=== PATIENT | female | born 1970 | race African-American/Black ===

== ENCOUNTER 2020-03-04 08:27 | Outpatient (CLI) | payer OTHER, SELFPAY ==
--- NOTE | 2020-03-04 11:00 | NEURO_ITS ---
Patient Number: [id number] Impression: # Complains of pain and discomfort in hands. # Evolving Carpal Tunnel Syndrome on the right. # No ulnar neuropathy. # Normal needle/EMG exam. Nerve Conduction Studies Anti Sensory Summary Table Stim Site NR Peak (ms) P-T Amp (?V) Site1 Site2 Delta-P (ms) Dist (cm) Negro (m/s) Left Median Anti Sensory (2-3nd Digit) Wrist 3.0 76.5 Wrist 2-3nd Digit 3.0 14.0 47 Wrist 3.1 78.1 Wrist 2-3nd Digit 3.0 14.0 47 Right Median Anti Sensory (2-3nd Digit) Wrist 3.0 78.2 Wrist 2-3nd Digit 3.0 14.0 47 Wrist 4.6 22.3 Wrist 2-3nd Digit 3.0 14.0 47 Left Radial Anti Sensory (Base 1st Digit) Wrist 2.6 21.9 Wrist Base 1st Digit 2.6 0.0 Right Radial Anti Sensory (Base 1st Digit) Wrist 2.4 19.6 Wrist Base 1st Digit 2.4 0.0 Left Ulnar Anti Sensory (5th Digit) Wrist 2.4 58.5 Wrist 5th Digit 2.4 14.0 58 Right Ulnar Anti Sensory (5th Digit) Wrist 2.3 8.5 Wrist 5th Digit 2.3 14.0 61 Motor Summary Table Stim Site NR Onset (ms) O-P Amp (mV) Site1 Site2 Delta-0 (ms) Dist (cm) Negro (m/s) Left Median Motor (Abd Poll Brev) Wrist 3.3 6.2 Elbow Wrist 5.2 32.0 62 Elbow 8.5 3.4 Right Median Motor (Abd Poll Brev) Wrist 3.5 5.2 Elbow Wrist 5.3 31.0 58 Elbow 8.8 2.7 Left Ulnar Motor (Abd Dig Minimi) Wrist 2.8 4.5 A Elbow Wrist 5.2 31.0 60 A Elbow 8.0 2.3 Right Ulnar Motor (Abd Dig Minimi) Wrist 2.5 3.7 A Elbow Wrist 5.4 30.0 56 A Elbow 7.9 2.4 F Wave Studies NR F-Lat (ms) L-R F-Lat (ms) Left Median (Mrkrs) (Abd Poll Brev) 27.33 0.77 Right Median (Mrkrs) (Abd Poll Brev) 26.56 0.77 Left Ulnar (Mrkrs) (Abd Dig Min) 26.82 0.08 Right Ulnar (Mrkrs) (Abd Dig Min) 26.90 0.08 EMG Side Muscle Nerve Root Ins Act Fibs Amp Dur Recrt Comment Right 1stDorInt Ulnar C8-T1 Nml Nml Nml Nml Nml Right Ext Indicis Radial (Post Int) C7-8 Nml Nml Nml Nml Nml Right Ext Digitorum Radial (Post Int) C7-8 Nml Nml Nml Nml Nml Right BrachioRad Radial C5-6 Nml Nml Nml Nml Nml Right PronatorTeres Median C6-7 Nml Nml Nml Nml Nml Right Abd Poll Brev Median C8-T1 Nml Nml Nml Nml Nml Left 1stDorInt Ulnar C8-T1 Nml Nml Nml Nml Nml Left Ext Indicis Radial (Post Int) C7-8 Nml Nml Nml Nml Nml Left Ext Digitorum Radial (Post Int) C7-8 Nml Nml Nml Nml Nml Left BrachioRad Radial C5-6 Nml Nml Nml Nml Nml Left PronatorTeres Median C6-7 Nml Nml Nml Nml Nml Left Abd Poll Brev Median C8-T1 Nml Nml Nml Nml Nml MTDD
== END 2020-03-04 08:28 | disposition home or self-care (01) ==
PROVIDERS: PCP Family Medicine; Visit Provider Orthopaedic Surgery
DX: G56.03 Carpal tunnel syndrome, bilateral upper limbs (principal)
CPT/HCPCS: 95886; 95911

== ENCOUNTER → 2020-06-16 17:39 | Outpatient (CLI) | payer OTHER, SELFPAY ==
--- NOTE | ~2020-06-16 | MM_ITS ---
EXAMINATION: MM screening ajay BI w dada HISTORY: Screening mammogram TECHNIQUE: Craniocaudal and mediolateral oblique 3-D tomosynthesis images were obtained and synthetic 2-D images were generated. .... Bilateral rotated lateral cc views. CAD analysis was submitted and i nterpreted. COMPARISON: 05/19/2019 diagnostic right digital mammogram 04/23/2019, 11/01/2016 bilateral digital screening mammogram examinations BREAST PARENCHYMAL COMPOSITION: There are scattered areas of fibroglandular density. FINDINGS: Occasional bilateral benign calcifications. There is focal asymmetric density in the posterior mid to upper right breast on MLO view. Diagnostic right mammogram is recommended, with ultrasound if required. Otherwise there is no evidence of suspicious mass, calcification, or architectural distortion to sugg est malignancy in either breast. There has been no suspicious interval change. IMPRESSION: 1. Right mammographic asymmetry in posterior mid to upper right breast on MLO view 2. Diagnostic right mammogram is recommended, with ultrasound if required BI-RADS Category 0: Incomplete: Needs additional imaging evaluation. Reviewed, dictated and finalized at location A. ET ANALYSIS DIRECTOR IMPRESSION: 1. Right mammographic asymmetry in posterior mid to upper right breast on MLO v iew 2. Diagnostic right mammogram is recommended, with ultrasound if required BI-RADS Category 0: Incomplete: Needs additional imaging evaluation.
== END ==
PROVIDERS: PCP Family Medicine; Visit Provider Nurse Practitioner
DX: Z12.31 Encounter for screening mammogram for malignant neoplasm of breast (principal); R92.8 Other abnormal and inconclusive findings on diagnostic imaging of breast
CPT/HCPCS: 77063; 77067

== ENCOUNTER 2020-06-17 16:10 | Outpatient (CLI) | payer OTHER, SELFPAY ==
[2020-06-17 16:27] LABS: Basophils Percent Auto 0.4 % (0.2-1.2); Eosinophils Absolute Auto 0.1 K/mm3 (0-0.3); Eosinophils Percent Auto 0.6 % (0-4.4); Hemoglobin 13.2 g/dL (12.0-15.0); Immature Granulocyte Absolute 0.01 K/mm3 (0.00-0.031); Immature Granulocyte Percent A 0.1 % (0-0.5); Lymphocytes Absolute Auto 2.12 K/mm3 (0.9-3.2); Lymphocytes Percent Auto 26.8 % (18.3-44.2); Mean Corpuscular HGB Conc 33.8 g/dl (32-36); Mean Corpuscular Hemoglobin 31.7 pg (26-34); Mean Corpuscular Volume 93.5 fl (80-100); Mean Platelet Volume 10.9 fl (7.4-10.4); Monocytes Absolute Auto 0.7 K/mm3 (0.1-0.6); Monocytes Percent Auto 8.2 % (2.6-8.5); Neutrophils Percent Auto 63.9 % (45.5-73.1); Platelet Count Result 185 k/mm3 (150-375); Red Blood Count 4.17 M/mm3 (4.2-5.4); Red Cell Distribution Width 12.3 % (11.5-14.5); White Blood Count 7.9 K/mm3 (4.5-10.0)
[2020-06-17 16:39] LABS: Alanine Aminotransferase 24 U/L (4-35); Albumin Level 4.1 g/dL (3.5-5.1); Alkaline Phosphatase 45 U/L (38-126); Anion Gap 5 mmol/L (8-16); Aspartate Amino Transferase 33 U/L (14-36); Bilirubin,Total 1.2 mg/dL (0.2-1.3); Blood Urea Nitrogen 11 mg/dL (7-17); Calcium 9.2 mg/dL (8.4-10.2); Carbon Dioxide 31 mmol/L (22-30); Chloride 101 mmol/L (98-107); Cholesterol 170 mg/dL (0-200); Estimated Glomerular Filt Rate > 60; Glucose 90 mg/dL (65-105); HDL Direct 50 mg/dL; Potassium 3.7 mmol/L (3.4-5.0); Sodium 137 mmol/L (137-145); Triglycerides 119 mg/dL (<150)
[2020-06-17 16:50] LABS: LDL Cholesterol Direct 94 mg/dL
[2020-06-18 05:05] LABS: Free T4 Free Thyroxine Reflex 0.55 ng/dL (0.78-2.19)
== END 2020-06-17 16:11 | disposition home or self-care (01) ==
LOC: ANHLAB 16:12
PROVIDERS: PCP Family Medicine; Visit Provider Family Medicine
DX: E66.01 Morbid (severe) obesity due to excess calories (principal); I10 Essential (primary) hypertension; E11.9 Type 2 diabetes mellitus without complications; Z13.220 Encounter for screening for lipoid disorders
CPT/HCPCS: 36415; 80053; 80061; 83036; 84439; 84443; 85025

== ENCOUNTER 2020-06-26 00:49 | Outpatient (CLI) | payer OTHER, SELFPAY ==
[2020-06-26 18:47] LABS: SARS-CoV-2 RNA PCR Negative
== END 2020-06-26 00:50 | disposition home or self-care (01) ==
LOC: ANHCOVIDDT 00:49
PROVIDERS: PCP Family Medicine; Visit Provider Internal Medicine Gastroenterology
DX: Z01.812 Encounter for preprocedural laboratory examination (principal); Z20.822 Contact with and (suspected) exposure to COVID-19
CPT/HCPCS: C9803; U0003; U0005

== ENCOUNTER 2020-06-29 01:37 | Day surgery (SDC) | payer OTHER, SELFPAY ==
[2020-06-11 08:45] VITALS: BMI 42.0
[2020-06-29 07:21] VITALS: BP 162/90; PULSE 79; RESP 18; TEMP 36.7; O2SAT 97
[2020-06-29] MEDS: LACTATED RINGERS 1,000 ML 150 ML IV CONT (07:51)
--- NOTE | 2020-06-29 08:22 | PM.HPGS ---
History of Present Illness History of Present Illness Consent: Risks, benefits, and alternatives have been discussed and questions answered. Patient agrees to proceed with procedure. Chief complaint: Neoplasm Screening Narrative: Elise Huitron is a 49 year old female here for first screening colonoscopy Review of Systems Constitutional: Constitutional: Denies headache(s) and Denies weakness Eyes: Eyes: Denies blurry vision ENT: Reports Normal hearing present, Denies headache(s) and Denies neck pain Cardiovascular: Cardiovascular: Denies chest pain and Denies dyspnea Respiratory: Respiratory: Denies dyspnea Gastrointestinal: Gastrointestinal: Reports no additional gastrointestinal complaints Genitourinary: Genitourinary: Denies dysuria Musculoskeletal: Musculoskeletal: Denies neck pain Integumentary/Breasts: Skin/Breast: Denies dry skin Neurologic: Reports Normal hearing present, Denies headache(s) and Denies weakness Psychiatric: Psychiatric: Denies anxiety Endocrine: Endocrine: Denies change in body appearance Hematologic/Lymphatic: Hematologic/Lymphatic: Denies easy bleeding Allergic/Immunologic: Allergic/Immunologic: Denies urticaria PMFSH Past Medical History Medical History Essential (primary) hypertension (~2013) Essential (primary) hypertension Severe obesity (BMI >= 40) (~2013) Surgical History Surgical History S/P cholecystectomy (~11/2018) S/P removal of right ovary (~03/2016) Family History Family History Mother Hypertension Sibling Hypertension Diabetes mellitus sister x2 Grandparent , @ 87 y/o Lung cancer Grandparent , @ 97 y/o Alzheimer's dementia Social History Social History 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 Smoking status: Never smoker Second hand tobacco smoke exposure: No Alcohol intake: current Drinks per week: 1 Substance use: never Substance use type: does not use Living arrangements: with family Additional occupation/education comments: 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 Gender identity (if verbalized by the patient): Female Spiritual care concerns: No Agree to blood products: Yes Meds Home Medications and Allergies Home Medications Medication Instructions Recorded Confirmed Type losartan 50 mg-hydrochlorothiazide 1 tablet PO DAILY #90 tablet 05/31/20 06/11/20 Rx 12.5 mg tablet ascorbic acid (vitamin C) 1 g PO DAILY 06/11/20 06/11/20 History folic acid 0.4 mg PO DAILY 06/11/20 06/11/20 History loly (Zingiber officinalis) 550 mg PO DAILY 06/11/20 06/11/20 History Allergies Allergy/AdvReac Type Severity Reaction Status Date / Time codeine Allergy Intermediate Rash Verified 06/29/20 07:52 diphenhydramine Allergy Intermediate RASH Verified 06/29/20 07:52 hydrocodone Allergy Mild ITCHING Verified 06/29/20 07:52 Vital Signs Vital Signs - 24 hr 06/29/20 07:21 Temperature 98.1 F Pulse Rate 79 Respiratory Rate 18 Blood Pressure 162/90 H Pulse Oximetry 97 Exam Const: General: comfortable and no acute distress HENMT: General nose exam: Normal nares present Eyes: General: appearance normal, both eyes and all related structures Neck: Neck: no JVD Resp: Auscultation: clear to auscultation bilaterally Cardio: Rate: regular rate Rhythm: regular rhythm GI: Inspection: non-distended GI Palp: Yes Soft to palpation Skin: General skin exam: normal color Neuro: General: gait normal Speech: normal speech Extrem: General: normal to inspection Psych: Mental Status: mental status grossly normal Assessment and Plan Assessment and plan (1) Colon cancer screening: Code(s): Z12.1
--- NOTE | 2020-06-29 08:25 | WPDANESEPPF ---
Anes - Initial Pre Proc Eval Procedure: Operation Date: 06/29/20 08:30 Proposed Procedures p Screening Colonoscopy - Dylon Lynne MD Date/Time: 06/29/20 08:25 Surgeon: Dylon Lynne MD Pre Op Diagnosis: Neoplasm Screening Patient Data Age: 49 Gender: F Height: 5 ft 6 in Weight: 115.1 kg Last Vital Signs Temp 98.1 F 06/29/20 07:21 Pulse 79 06/29/20 07:21 Resp 18 06/29/20 07:21 BP 162/90 H 06/29/20 07:21 Pulse Ox 97 06/29/20 07:21 Allergies Allergy/AdvReac Type Severity Reaction Status Date / Time codeine Allergy Intermediate Rash Verified 06/29/20 07:52 diphenhydramine Allergy Intermediate RASH Verified 06/29/20 07:52 hydrocodone Allergy Mild ITCHING Verified 06/29/20 07:52 Home Medications Medication Instructions Recorded Confirmed Type losartan 50 mg-hydrochlorothiazide 1 tablet PO DAILY #90 tablet 05/31/20 06/11/20 Rx 12.5 mg tablet ascorbic acid (vitamin C) 1 g PO DAILY 06/11/20 06/11/20 History folic acid 0.4 mg PO DAILY 06/11/20 06/11/20 History loly (Zingiber officinalis) 550 mg PO DAILY 06/11/20 06/11/20 History Patient hx anesthesia problems: none Family hx anesthesia problems: none PMFSH Past Medical History Medical History (Updated 06/29/20 @ 08:23 by Dylon Lynne MD) Colon cancer screening Essential (primary) hypertension (~2013) Essential (primary) hypertension Severe obesity (BMI >= 40) (~2013) Surgical History Surgical History S/P cholecystectomy (~11/2018) S/P removal of right ovary (~03/2016) Family History Family History Mother Hypertension Sibling Hypertension Diabetes mellitus sister x2 Grandparent , @ 87 y/o Lung cancer Grandparent , @ 97 y/o Alzheimer's dementia Social History Social History 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 Smoking status: Never smoker Second hand tobacco smoke exposure: No Alcohol intake: current Drinks per week: 1 Substance use: never Substance use type: does not use Living arrangements: with family 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 Gender identity (if verbalized by the patient): Female Spiritual care concerns: No Agree to blood products: Yes Anes - Eval Final PreProcedure Day of Procedure 06/29/20 08:25 Patient weight: morbidly obese Heart: regular rate and rhythm Lungs: clear to auscultation Airway: Mallampati scale class II Neurological: alert and oriented Last oral intake: >/= 8 hours ASA classification: III Emergent: no Anesthetic plan: proceed Anesthesia type and monitoring: general GIVS and standard monitoring Informed Consent: The patient's anesthetic plan and its attendant risks and benefits were discussed with the patient/family/POA. Questions were solicited and answers provided to the satisfaction of the patient/family/POA.
[2020-06-29 08:44] VITALS: BP 124/76; PULSE 84; RESP 17; O2SAT 95
[2020-06-29 08:54] VITALS: BP 131/83; PULSE 75; RESP 14; O2SAT 94
[2020-06-29 09:04] VITALS: BP 137/85; PULSE 69; RESP 19; O2SAT 95
== END 2020-06-29 09:25 | disposition home or self-care (01) ==
PROVIDERS: PCP Family Medicine; Visit Provider Internal Medicine Gastroenterology
PROC: 0DJD8ZZ Inspection of Lower Intestinal Tract, Via Natural or Artificial Opening Endoscopic (ICD-10-PCS; CPT 45378; principal; 2020-06-29 08:30)
DX: Z12.11 Encounter for screening for malignant neoplasm of colon (principal); K63.5 Polyp of colon; K64.8 Other hemorrhoids; I10 Essential (primary) hypertension; E66.01 Morbid (severe) obesity due to excess calories; Z68.41 Body mass index [BMI] 40.0-44.9, adult
CPT/HCPCS: 45385; 88305; C9803; J2704; J7120; U0003; U0005

== ENCOUNTER → 2020-07-12 08:32 | Outpatient (CLI) | payer OTHER, SELFPAY ==
--- NOTE | ~2020-07-12 | MMUS_ITS ---
EXAMINATION: MM diagnostic mammo unilat RT, US breast RT limited HISTORY: Follow-up right breast asymmetry TECHNIQUE: Additional 3-D tomosynthesis images of the right breast were performed and synthetic 2-D i mages were generated. CAD analysis was submitted and interpreted. High resolution right breast ultras ound was performed. COMPARISON: Comparison to multiple prior studies sequentially, with oldest reviewed study dated 01/2014. BREAST PARENCHYMAL COMPOSITION: Breast composed of scattered areas of fibroglandular density. FINDINGS: MAMMOGRAPHIC FINDINGS: There are benign-appearing masses overlying the pectoralis muscle on the MLO and mediolateral views, most likely benign lymph nodes. No suspicious masses, calcifications or architectural distortion to s uggest malignancy. ULTRASOUND: Limited ultrasound of the right breast/axilla: In the axilla there is an 8 mm benign-appearing lymph node with central fatty hilum. No suspicious masses are identified to suggest malignancy. IMPRESSION: 1. No evidence for malignancy in the right breast. 2. Routine yearly screening mammogram and regular clinical breast examination are recommended. BI-RADS Category 2: Benign finding(s). Reviewed, dictated and finalized at location A. OGY SURGEON IMPRESSION: 1. No evidence for malignancy in the right breast. 2. Routine yearly screening mammogram and regular clinical breast examination a re recommended. BI-RADS Category 2: Benign finding(s).
== END ==
PROVIDERS: PCP Family Medicine; Visit Provider Obstetrics & Gynecology Gynecology
DX: R92.8 Other abnormal and inconclusive findings on diagnostic imaging of breast (principal)
CPT/HCPCS: 76642; 77065

== ENCOUNTER 2021-08-15 11:55 | Outpatient (CLI) | payer OTHER, SELFPAY ==
[2021-08-15 12:19] LABS: Basophils Percent Auto 0.5 % (0.2-1.2); Eosinophils Absolute Auto 0.1 K/mm3 (0-0.3); Eosinophils Percent Auto 1.3 % (0-4.4); Hematocrit 42.3 % (37.0-47.0); Hemoglobin 14.2 g/dL (12.0-15.0); Immature Granulocyte Absolute 0.01 K/mm3 (0.00-0.031); Immature Granulocyte Percent A 0.1 % (0-0.5); Lymphocytes Absolute Auto 1.51 K/mm3 (0.9-3.2); Lymphocytes Percent Auto 20.4 % (18.3-44.2); Mean Corpuscular HGB Conc 33.6 g/dl (32-36); Mean Corpuscular Hemoglobin 31.7 pg (26-34); Mean Corpuscular Volume 94.4 fl (80-100); Mean Platelet Volume 10.3 fl (7.4-10.4); Monocytes Absolute Auto 0.5 K/mm3 (0.1-0.6); Monocytes Percent Auto 6.9 % (2.6-8.5); Neutrophils Absolute Auto 5.3 K/mm3 (1.3-6.7); Neutrophils Percent Auto 70.8 % (45.5-73.1); Platelet Count Result 198 k/mm3 (150-375); Red Blood Count 4.48 M/mm3 (4.2-5.4); Red Cell Distribution Width 12.5 % (11.5-14.5); White Blood Count 7.4 K/mm3 (4.5-10.0)
[2021-08-15 12:33] LABS: Potassium 4.2 mmol/L (3.4-5.0)
[2021-08-15 12:43] LABS: Alanine Aminotransferase 24 U/L (4-35); Albumin Level 4.7 g/dL (3.5-5.1); Alkaline Phosphatase 55 U/L (38-126); Anion Gap 8 mmol/L (8-16); Aspartate Amino Transferase 32 U/L (14-36); Bilirubin,Total 0.9 mg/dL (0.2-1.3); Blood Urea Nitrogen 12 mg/dL (7-17); Calcium 9.2 mg/dL (8.4-10.2); Carbon Dioxide 23 mmol/L (22-30); Chloride 104 mmol/L (98-107); Cholesterol 232 mg/dL (0-200); Estimated Glomerular Filt Rate > 60; Glucose 114 mg/dL (65-110); HDL Direct 58 mg/dL; Sodium 135 mmol/L (137-145); Triglycerides 172 mg/dL (<150)
[2021-08-15 12:44] LABS: LDL Cholesterol Direct 131 mg/dL
[2021-08-15 12:49] LABS: Hemoglobin A1C 5.7 % (<5.7)
[2021-08-15 12:51] LABS: Vitamin D 25 Hydroxy 29.6 ng/mL
== END 2021-08-15 11:56 | disposition home or self-care (01) ==
LOC: ANHLAB 11:58
PROVIDERS: PCP Family Medicine; Visit Provider Family Medicine
DX: Z00.00 Encounter for general adult medical examination without abnormal findings (principal); Z13.220 Encounter for screening for lipoid disorders; I10 Essential (primary) hypertension; R73.03 Prediabetes; E55.9 Vitamin D deficiency, unspecified
CPT/HCPCS: 36415; 80053; 80061; 82306; 83036; 84443; 85025

== ENCOUNTER → 2021-09-06 16:09 | Outpatient (CLI) | payer OTHER, SELFPAY ==
--- NOTE | ~2021-09-06 | MM_ITS ---
EXAMINATION: MM screening ajay BI w dada HISTORY: Screening mammogram TECHNIQUE: Craniocaudal and mediolateral oblique 3-D tomosynthesis images were obtained and synthetic 2-D images were generated. CAD analysis was submitted and interpreted. COMPARISON: July 12, 2020 diagnostic right mammogram and limited right breast ultrasound 06/16/2020 bilateral screening mammogram 05/19/2019 diagnostic right mammogram 04/23/2019 bilateral screening mammogram BREAST PARENCHYMAL COMPOSITION: There are scattered areas of fibroglandular density. FINDINGS: There is no evidence of suspicious mass, calcification, or architectural distortion to sugg est malignancy in either breast. There has been no suspicious interval change. IMPRESSION: 1. No mammographic evidence of malignancy. 2. Recommend routine screening mammography in one year. BI-RADS Category 1: Negative Reviewed, dictated and finalized at location A.
== END ==
PROVIDERS: PCP Family Medicine; Visit Provider Nurse Practitioner
DX: Z12.31 Encounter for screening mammogram for malignant neoplasm of breast (principal)
CPT/HCPCS: 77063; 77067

== ENCOUNTER 2022-06-13 11:59 | Outpatient (CLI) | payer OTHER, SELFPAY ==
[2022-06-13 20:28] LABS: Alanine Aminotransferase 25 U/L (6-35); Albumin Level 4.5 g/dL (3.5-5.1); Alkaline Phosphatase 62 U/L (38-126); Anion Gap 6 mmol/L (8-16); Aspartate Amino Transferase 40 U/L (14-36); Bilirubin,Total 1.6 mg/dL (0.2-1.3); Blood Urea Nitrogen 13 mg/dL (7-17); Calcium 9.1 mg/dL (8.4-10.2); Carbon Dioxide 31 mmol/L (22-30); Chloride 100 mmol/L (98-107); Cholesterol 219 mg/dL (0-200); Estimated Glomerular Filt Rate > 60; Glucose 105 mg/dL (65-110); HDL Direct 51 mg/dL; Potassium 3.9 mmol/L (3.4-5.0); Sodium 137 mmol/L (137-145); Triglycerides 144 mg/dL (<150)
[2022-06-13 20:41] LABS: Basophils Percent Auto 0.6 % (0.2-1.2); Eosinophils Percent Auto 0.4 % (0-4.4); Hematocrit 38.8 % (37.0-47.0); Hemoglobin 13.1 g/dL (12.0-15.0); Immature Granulocyte Absolute 0.01 K/mm3 (0.00-0.031); Immature Granulocyte Percent A 0.1 % (0-0.5); Lymphocytes Absolute Auto 1.76 K/mm3 (0.9-3.2); Lymphocytes Percent Auto 24.9 % (18.3-44.2); Mean Corpuscular HGB Conc 33.8 g/dl (32-36); Mean Corpuscular Hemoglobin 31.3 pg (26-34); Mean Corpuscular Volume 92.6 fl (80-100); Mean Platelet Volume 11.1 fl (7.4-10.4); Monocytes Absolute Auto 0.4 K/mm3 (0.1-0.6); Monocytes Percent Auto 5.7 % (2.6-8.5); Neutrophils Absolute Auto 4.8 K/mm3 (1.3-6.7); Neutrophils Percent Auto 68.3 % (45.5-73.1); Platelet Count Result 223 k/mm3 (150-375); Red Blood Count 4.19 M/mm3 (4.2-5.4); Red Cell Distribution Width 12.6 % (11.5-14.5); White Blood Count 7.1 K/mm3 (4.5-10.0)
[2022-06-13 22:39] LABS: LDL Cholesterol Direct 120 mg/dL
[2022-06-13 23:43] LABS: Vitamin D 25 Hydroxy < 12.8 ng/mL
== END 2022-06-13 12:00 | disposition home or self-care (01) ==
LOC: ANHGOSHLAB 12:01
PROVIDERS: PCP Family Medicine; Visit Provider Family Medicine
DX: Z00.00 Encounter for general adult medical examination without abnormal findings (principal); I10 Essential (primary) hypertension; R73.03 Prediabetes; E55.9 Vitamin D deficiency, unspecified; E78.5 Hyperlipidemia, unspecified; E53.8 Deficiency of other specified B group vitamins
CPT/HCPCS: 36415; 80053; 80061; 82306; 82607; 83036; 84443; 85025

== ENCOUNTER 2022-09-13 20:12 | Outpatient (NON) | payer OTHER, SELFPAY | END 2022-09-13 20:13 | disposition home or self-care (01) | PROVIDERS: PCP Family Medicine; Visit Provider Family Medicine | DX: R31.29 Other microscopic hematuria (principal); R10.2 Pelvic and perineal pain | CPT/HCPCS: 87086 ==

== ENCOUNTER 2022-10-18 16:43 | Outpatient (CLI) | payer OTHER, SELFPAY ==
--- NOTE | ~2022-10-18 | XR_ITS ---
EXAM: XR knee LT min 4V DATE: 10/18/2022 17:09 HISTORY: M25.562 - Pain in left knee . COMPARISON: None available. FINDINGS: Normal mineralization. No fracture or dislocation. No lytic or blastic lesion. Mild medial joint space narrowing. Mild tricompartmental osteophytosis. Patellar enthesopathy. No erosion or per iosteal change. Soft tissues within normal limits. IMPRESSION: Mild tricompartmental left knee osteoarthritis. No acute osseous finding found in the lef t knee. Reviewed, dictated and finalized at location K. IMPRESSION: Mild tricompartmental left knee osteoarthritis. No acute osseous fi nding found in the left knee.
== END 2022-10-18 16:44 | disposition home or self-care (01) ==
PROVIDERS: PCP Family Medicine; Visit Provider Family Medicine
DX: M25.462 Effusion, left knee (principal); M17.12 Unilateral primary osteoarthritis, left knee
CPT/HCPCS: 73564

== ENCOUNTER → 2022-11-17 13:31 | Outpatient (CLI) | payer OTHER, SELFPAY ==
--- NOTE | ~2022-11-17 | MR_ITS ---
EXAMINATION: MR knee LT wo con DATE: 11/17/2022 14:12 INDICATION: M25.562 - Pain in left knee TECHNIQUE: Magnetic resonance imaging (MRI) of the left knee was performed without intravenous contra st. Sequences included axial PD-weighted FS FSE, coronal PD-weighted FSE and PD-weighted FS FSE, sagi ttal PD-weighted FSE, and sagittal T2-weighted FS FSE. COMPARISON: X-ray left knee 10/18/2022 FINDINGS: Medial compartment: Small radial apical tear at the meniscal body. Mild diffuse cartilage thinning. Mild osteophytosis. Lateral compartment: Blunted apex likely representing a small apical tear. Mild diffuse cartilage thinning. Mild osteophyt osis. Patellofemoral compartment: Cartilage intact. Retinacula intact. Mild osteophytosis. Ligaments and tendons: The ACL, PCL, MCL, and LCL are intact. Thickening and abnormal signal within the distal popliteus ten don at its insertion. Cystic signal change at the musculotendinous junction of the popliteus. Remaini ng flexor and extensor tendons are intact. Fluid: No significant fluid collection. Osseous/other: No suspicious focal or diffuse marrow signal. IMPRESSION: 1. Small apical tears of the medial and lateral menisci. 2. Mild tricompartmental osteoarthritic change. 3. Popliteus strain. Reviewed, dictated and finalized at location K.
== END ==
PROVIDERS: PCP Family Medicine; Visit Provider Family Medicine
DX: M17.12 Unilateral primary osteoarthritis, left knee (principal)
CPT/HCPCS: 73721

== ENCOUNTER 2022-12-15 10:50 | Outpatient (CLI) | payer OTHER, SELFPAY ==
[2022-12-15 11:50] LABS: Hemoglobin A1C 6.2 % (<5.7)
[2022-12-15 11:54] LABS: Alanine Aminotransferase 27 U/L (6-35); Albumin Level 4.2 g/dL (3.5-5.1); Alkaline Phosphatase 62 U/L (38-126); Anion Gap 9 mmol/L (8-16); Aspartate Amino Transferase 28 U/L (14-36); Bilirubin,Total 1.4 mg/dL (0.2-1.3); Blood Urea Nitrogen 12 mg/dL (7-17); Calcium 9.1 mg/dL (8.4-10.2); Carbon Dioxide 27 mmol/L (22-30); Chloride 102 mmol/L (98-107); Estimated Glomerular Filt Rate > 60; Glucose 115 mg/dL (65-110); Sodium 138 mmol/L (137-145)
[2022-12-15 12:11] LABS: Vitamin D 25 Hydroxy 13.3 ng/mL
== END 2022-12-15 10:51 | disposition home or self-care (01) ==
LOC: ANHLAB 10:51
PROVIDERS: PCP Family Medicine; Visit Provider Family Medicine
DX: R73.03 Prediabetes (principal); I10 Essential (primary) hypertension; E55.9 Vitamin D deficiency, unspecified
CPT/HCPCS: 36415; 80053; 82306; 83036

== ENCOUNTER 2023-07-17 08:37 | Outpatient (CLI) | payer OTHER, SELFPAY ==
[2023-07-17 14:21] LABS: Basophils Percent Auto 0.5 % (0.2-1.2); Eosinophils Percent Auto 0.6 % (0-4.4); Hematocrit 39.5 % (37.0-47.0); Hemoglobin 12.5 g/dL (12.0-15.0); Immature Granulocyte Absolute 0.02 K/mm3 (0.00-0.031); Immature Granulocyte Percent A 0.3 % (0-0.5); Lymphocytes Absolute Auto 1.66 K/mm3 (0.9-3.2); Lymphocytes Percent Auto 25.4 % (18.3-44.2); Mean Corpuscular HGB Conc 31.6 g/dl (32-36); Mean Corpuscular Hemoglobin 30.6 pg (26-34); Mean Corpuscular Volume 96.6 fl (80-100); Mean Platelet Volume 11.7 fl (7.4-10.4); Monocytes Absolute Auto 0.4 K/mm3 (0.1-0.6); Monocytes Percent Auto 6.3 % (2.6-8.5); Neutrophils Absolute Auto 4.4 K/mm3 (1.3-6.7); Neutrophils Percent Auto 66.9 % (45.5-73.1); Platelet Count Result 186 k/mm3 (150-375); Red Blood Count 4.09 M/mm3 (4.2-5.4); Red Cell Distribution Width 13.3 % (11.5-14.5); White Blood Count 6.5 K/mm3 (4.5-10.0)
[2023-07-17 14:46] LABS: Alanine Aminotransferase 22 U/L (6-35); Albumin Level 4.1 g/dL (3.5-5.1); Alkaline Phosphatase 61 U/L (38-126); Anion Gap 7 mmol/L (8-16); Aspartate Amino Transferase 50 U/L (14-36); Bilirubin,Total 0.8 mg/dL (0.2-1.3); Blood Urea Nitrogen 11 mg/dL (7-17); Calcium 9.1 mg/dL (8.4-10.2); Carbon Dioxide 27 mmol/L (22-30); Chloride 104 mmol/L (98-107); Cholesterol 193 mg/dL (0-200); Estimated Glomerular Filt Rate > 60; Glucose 104 mg/dL (65-110); HDL Direct 43 mg/dL; Potassium 4.1 mmol/L (3.4-5.0); Sodium 138 mmol/L (137-145); Triglycerides 85 mg/dL (<150)
[2023-07-17 14:57] LABS: LDL Cholesterol Direct 121 mg/dL
[2023-07-17 15:49] LABS: Vitamin D 25 Hydroxy 59.4 ng/mL
[2023-07-17 15:50] LABS: Hemoglobin A1C 6.2 % (<5.7)
[2023-07-18 07:44] LABS: Free T4 Free Thyroxine Reflex 0.64 ng/dL (0.78-2.19)
== END 2023-07-17 08:38 | disposition home or self-care (01) ==
LOC: ANHGOSHLAB 08:38
PROVIDERS: PCP Family Medicine; Visit Provider Family Medicine
DX: R73.03 Prediabetes (principal); E78.5 Hyperlipidemia, unspecified; I10 Essential (primary) hypertension; E53.8 Deficiency of other specified B group vitamins; E55.9 Vitamin D deficiency, unspecified; Z00.00 Encounter for general adult medical examination without abnormal findings
CPT/HCPCS: 36415; 80053; 80061; 82306; 82607; 83036; 84439; 84443; 85025

== ENCOUNTER 2024-11-11 13:52 | Outpatient (CLI) | payer OTHER, SELFPAY ==
--- NOTE | ~2024-11-11 | MM_ITS ---
EXAMINATION: MM screening ajay BI w dada HISTORY: Screening TECHNIQUE: Craniocaudal and mediolateral oblique 3-D tomosynthesis images were obtained and synthetic 2-D images were generated. CAD analysis was submitted and interpreted. COMPARISON: Comparison to multiple prior studies sequentially, with oldest reviewed study dated 11/2016. BREAST PARENCHYMAL COMPOSITION: Not dense: There are scattered areas of fibroglandular density. FINDINGS: There is no evidence of suspicious mass, calcification, or architectural distortion to sugg est malignancy in either breast. There has been no suspicious interval change. IMPRESSION: 1. No mammographic evidence of malignancy. 2. Recommend routine screening mammography in one year. BI-RADS Category 1: Negative Reviewed, dictated and finalized at location A.
== END 2024-11-11 13:53 | disposition home or self-care (01) ==
LOC: MICIMG 13:53
PROVIDERS: PCP Family Medicine; Visit Provider Nurse Practitioner Family
DX: Z12.31 Encounter for screening mammogram for malignant neoplasm of breast (principal)
CPT/HCPCS: 77063; 77067

== ENCOUNTER 2024-12-02 12:09 | Outpatient (CLI) | payer OTHER, SELFPAY ==
--- OUTSIDE RECORDS SUMMARY | 2024-12-02 12:14 | XMS_ITS | Referral Summary ---
Author Organization [facility] Address [address] [place] [id number] Care Team Providers Care Spice Blender Name Role Phone Colette Moser MD Primary Care Provider Allergies Active Allergy Reactions Criticality Noted Date Comments Diphenhydramine Rash Medium 01/15/2023 Codeine Rash Medium 01/15/2023 Medications losartan-hydroC HLOROthiazide (HYZAAR) 50-12.5 mg per tabletIndicatio ns:hypertension Take 1 tablet by mouth every morning 3 Active cholecalciferol (VITAMIN D-3) 50,000 unit capsuleIndicati ons:Vitamin D Deficiency Take 1 capsule (50,000 Units total) by mouth once a week SUNDAY Active ascorbic acid (vitamin C) 1,000 mg tabletIndicatio ns:Immune support Take 1 tablet (1,000 mg total) by mouth every morning Active ibuprofen 200 mg tab/cap Take 3 tablet/capsule (600 mg total) by mouth every 6 (six) hours as needed for pain Active Active Problems Problem Noted Date Diagnosed Date S/P arthroscopic partial medial meniscectomy 11/2022 Complex tear of medial menis cus of left knee as current injury 01/16/2023 Complex tear of lateral meni scus of left knee as current injury 01/16/2023 Acute lateral meniscus tear of left knee 023 Effusion, left knee 01/15/2023 Acute pain of left knee 01/15/2023 Social History Tobacco Use Types Packs/Day Years Used Date Smoking Tobacco: Never Passive Smoke Exposure: Past Smokeless Tobacco: Never Passive Exposure Comments:mo m smoked Personal Safety Answer Date Recorded Have you ever been in or are you currently in a harmful physical or emotional relationship or is someone making you feel afraid or unsafe? 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 Gender Identity Not on file Sexual Orientation Not on file Last Filed Vital Signs Vital Sign Reading Time Taken Comments Blood Pressure 134/84 08/24/2024 8:41 AM CDT Pulse 67 08/24/2024 8:41 AM CDT Temperature 36 C (96.8 F) 08/24/2024 8:41 AM CDT Respiratory Rate 22 08/24/2024 8:41 AM CDT Oxygen Saturation 97% 08/24/2024 8:41 AM CDT Inhaled Oxygen Concentration - - Weight 117.9 kg (260 lb) 08/24/2024 8:41 AM CDT Height 167.6 cm (5' 6) 08/24/2024 8:41 AM CDT Body Mass Index 41.97 08/24/2024 8:41 AM CDT Plan of Treatment Not on file Insurance [facility] CHOICE PLUS [facility] CHOICE PLUS Advance Directives For more information, please contact: [phone] * Full Code (Latest Code Status on File) Date Activated Date Inactivated Comments 01/19/2023 7:48 AM 01/19/2023 1:41 PM Care Teams Spice Blender Relationship Specialty Start Date End Date Colette Moser MD [id number] [facility] [address] [place] [address] PCP - General Family Practice 01/19/23
--- OUTSIDE RECORDS SUMMARY | 2024-12-02 12:14 | XMS_ITS | Continuity of Care Document ---
Author Organization [facility] Address [address] [place] [address] [place] [address] Phone Care Team Providers Care Surveillance Observer Name Role Phone Bryson FIGUEROA, Brayden Unavailable Unavailable Allergies, Adverse Reactions, Alerts Substance Reaction Status Criticality DIPHENHYDRAMINE HCL Active No Infor mation codeine Active No Information Medications Medication Instructions Dosage Effective Dates (start - stop) Status Comments losartan 50 mg-hydrochlorothiaz aramis 12.5 mg tablet take 1 tablet by oral route every day 1.00 tablet - Active Procedures Procedure Date OFFICE/OUTPATIENT VISIT, EST OFFICE/OUTPATIENT VISIT, EST OFFICE/OUTPATIENT VISIT, EST OFFICE/OUTPATIENT VISIT, EST OFFICE/OUTPATIENT VISIT, EST PREV VISIT, EST, AGE 40-64 OFFICE/OUTPATIENT VISIT, EST OFFICE/OUTPATIENT VISIT, EST PREV VISIT, NEW, AGE 40-64 Advance Directives Directive Yes / No Effective Date File Name No Information Encounters Encounter Description Practice Location Reason(s) For Visit Diagnoses Date Provider Providers Copied on Encounter OFFICE/OUTPA TIENT VISIT, EST [facility], [address] [facility] [place], [place], [id number], [place] tel:[phone] [facility] Medicine ear pain1 (chief complaint) HTN (chief complaint) Acute upper respiratory infection, unspecifiedEssentia l (primary) hypertension 6 Bryson Owen. [address] [facility] [place], [id number] , [place]. tel:[phone] Referring Provider: Brayden Massey, [address], [place], [place], [address]. tel:[phone] OFFICE/OUTPA TIENT VISIT, [facility], [address], [place], [place], [address], [place] tel:[phone] [facility] HTn (chief complaint) HLP (chief complaint) Essential (primary) hypertensionHyperli pidemia 6 Bryson Owen. [address], [place], [place], [address] , [place]. tel:[phone] Referring Provider: Hector Matthews [address], [place], [place], [id number]. tel:[phone] [facility], [address], [place], [place], [address], [place] tel:[phone] [facility] No Information 6 Bryson Owen. [address], [place], [place], [address] , [place]. tel:[phone] OFFICE/OUTPA TIENT VISIT, [facility], [address], [place], [place], [address], [place] tel:[phone] [facility] HTN (chief complaint) edema1 (chief complaint) Essential (primary) hypertensionEdema 6 Bryson Owen. [address], [place], [place], [address] , [place]. tel:[phone] Referring Provider: Hector Matthews [address], [place], [place], [address]. tel:[phone] OFFICE/OUTPA TIENT VISIT, [facility], [address], [place], [place], [address], [place] tel:[phone] [facility] HTN (chief complaint) edema1 (chief complaint) Essential (primary) hypertensionEdema 0201 6 Bryson Owen. [address], [place], [place], [address] , [place]. tel:[phone] Referring Provider: Brayden Massey, [address], [place], [place], [address]. tel:[phone] OFFICE/OUTPA TIENT VISIT, [facility], [address], [place], [place], [address], [place] [phone] [facility] HTN (chief complaint) HLP (chief complaint) vitmain D (chief complaint) UTI1 (chief complaint) Essential (primary) hypertensionHyperli pidemiaBody mass index (BMI) 40.0-44.9, adultVitamin D deficiency, unspecified Mar-0 6 Bryson Owen. [address], [place], [place], [address] , [place]. [phone] Referring Provider: Brayden Massey, [address] [facility] [address], [place], [place], [address]. tel:[phone] PREV VISIT, [facility], AGE 40-64 [facility], [address], [place], [place], [address], [place] [phone] [facility] Physical (chief complaint) Encntr for general adult medical exam w/o abnormal findings 0 6 Bryson Owen. [address], [facility] [address], [place], [place], [address] , [place]. tel:[phone] Referring Provider: H[address], [place], [place], [address]. tel:[phone] OFFICE/OUTPA TIENT VISIT, [facility], [address], [place], [place], [address], [place] [phone] [facility] left elbow pain (chief complaint) HTN (chief complaint) anemia (chief complaint) Lateral epicondylitisHypert ension, UnspecifiedAnemiaDi etary surveillance and counselingUnspecifi ed vitamin d deficiency 4 Bryson Owen. [address], [place], [place], [address] , [place]. tel:[phone] Referring Provider: Hector Matthews [facility] [address], [place], [place], [address]. tel:[phone] OFFICE/OUTPA TIENT VISIT, EST [facility], [address], [place], [place], [address], [place] tel:[phone] [facility] Medicine abdominal pain (chief complaint) Dietary surveillance and counselingViral Infection, Unspecified 4 Bryson Owen. [address], [place], [place], [address] , [place]. tel:[phone] Referring Provider: Brayden Massey, [address], [place], [place], [address]. tel:[phone] PREV VISIT, NEW, AGE 40-64 [facility], [address], [place], [place], [address], tel:[phone] [facility] Medicine Physical (chief complaint) Dietary surveillance and counselingRoutine Medical ExamRoutine Medical Exam 4 Bryson Owen. [address], [place], [place], [address] , [place]. tel:[phone] Family History Family Member Type Diagnosis Age At Onset Sister Problem (finding) Alive and well Father Problem (finding) Unknown Disease Mother Problem (finding) Hypertension Payers Payer name Insurance type Covered alliance party ID Authoriza tion(s) No Information Social History Type Description Quantity Date Captured Comments Alcohol Use Details Caffeine Use Details Unknown Tobacco Use Status Never smoked tobacco 2015 Smoking Status Never smoker Sex Female Vital Signs Date / Time: Height Weight BMI Pulse Rate Blood Pressure Temperature Respiratory Rate Body Surface Area Head Circumference BMI percentile Pulse Ox Inhaled Ox 5:24 PM 165.10 cm 238.00 lbs 39.6 0 kg/m eter (2) 75 /min 131/86 mm[Hg] 98.0 F 18 /min Chief Complaint And Reason For Visit From encounter dated '04/27/2016 15:30'. ear pain1 (chief complaint). Description: Pt c/o right ear pain and ear congestion and producitve coughing with green phlegm and some blood tinge for one week. Pt took Zpak last week but did not help. Pt c/o sore throat, sinus congsetion as well. Pt denies any fever, chill. Pt states that she can hear loud noise right ear and she feels pain when she swallows. HTN (chief complaint). Description: Pt hodan yang.hctz and her BP is stalbe Plan Of Treatment Date Type Action Status Goal Td vaccine. Due on 16 due Goal Pap/HPV testing. Due on due Goal Depression screening. Due on due Goal Tdap. Due on due Goal Tdap. Due on due Goal Depression screening. Due on due Goal Pap/HPV testing. Due on due Goal Td vaccine. Due on 16 due Goal Td vaccine. Due on 16 due Goal Depression screening. Due on due Goal Tdap. Due on due Goal Pap/HPV testing. Due on due Goal Depression screening. Due on due Goal Tdap. Due on due Goal Td vaccine. Due on 16 due Goal Pap/HPV testing. Due on due Goal Tdap. Due on due Goal Td vaccine. Due on 16 due Goal Depression screening. Due on due Goal Pap/HPV testing. Due on due Goal Depression screening. Due on due Goal Pap/HPV testing. Due on due Goal Td vaccine. Due on 16 due Goal Tdap. Due on due Goal Mammogram. Due on 4 due Referral Ordered: Referral: Plastic Surg. Evaluate and treat. ordered Referral Ordered: MOTOR NERVE CONDUCTION TEST ordered Referral Ordered: MAMMOGRAM, SCREENING ordered History Of Present Illness Encounter Date Complaint History Of Prese nt Illness HTN Pt tak losatan .hctz and her BP is stalbe ear pain1 Pt c/o right ear pain and ear congestion and producitve coughing with green phlegm and some blood tinge for one week. Pt took Zpak last week but did not help. Pt c/o sore throat, sinus congsetion as well. Pt denies any fever, chill. Pt states that she can hear loud noise right ear and she feels pain when she swallows. HTn Pt has HTn. Pt t akes losaratn/HCTZ and her BP is ok today Pt denies any chest pain or headache HLP Pt has mild HLP. Pt is working on low fat and low carb diet. edema1 Edeam resolved w ithout norvasc. Pt denies any soB HTN Pt has HTN. Pt t akes losartan.HCTZ and her BP is stable today Pt denies any chset pain or headache edema1 Pt notices bilat eral lower extremiety edema sicne one week ago. Pt denies any numnbess or tingling. Pt denies any calf pain. Pt denies any recent travel or bedrest. Pt went to ER due to leg swelling. She had head CT which was negative. Pt told me ER doctor samara she had stroke symptoms due to leg numnbess and did head Ct Pt told me she never had leg numnbess HTN Pt has been taki ng norvasc and her BP is stable. Pt states that her BP has been around 130/80 sicne taking norvasc. Pt denies any chest pain or headache UTI1 Pt states that h er dark urine and UTI symptoms resolved with abx. Her repeat UA is clear vitmain D Pt has low vitam in D. Pt denies any history of fracture. HLP Pt has HLP. Pt e ats a lot of buffy lao food and fried food, etc. Pt does not follow any healthy diet HTN Pt has HTN. Pt d enies any chest pain or headche Her BP is high persistently elevated at home. She brought in her BP measuremenet from home and it is average around 155/100. Physical Pt needs annual physical. Pt c/o dark urine for 4 weeks. Pt denies any urinary burning or urgency or frequency. Pt denies any blood in urine. Pt c/o low flank pain for several days also. Pt denies any fever, chill. Pt had to take some ibuprofen last night due to the flank pain. Pt denies any other complaints. Pt deniies any chest pain or headache Instructions Date Instruction Additional Infor xiang Prescribed Diet Educ ation/Lifestyle Education Regarding Diet Related to Dietary Surveillance and Counseling Prescribed Activity and Exercise Education Related to Dietary Surveillance and Counseling Prescribed Activity and Exercise Education Related to Dietary Surveillance and Counseling Prescribed Diet Educ ation/Lifestyle Education Regarding Diet Related to Dietary Surveillance and Counseling Prescribed Activity and Exercise Education Related to Dietary Surveillance and Counseling Prescribed Diet Educ ation/Lifestyle Education Regarding Diet Related to Dietary Surveillance and Counseling Prescribed Activity and Exercise Education Related to Dietary Surveillance and Counseling Prescribed Diet Educ ation/Lifestyle Education Regarding Diet Related to Dietary Surveillance and Counseling Prescribed Activity and Exercise Education Related to Dietary Surveillance and Counseling Prescribed Diet Educ ation/Lifestyle Education Regarding Diet Related to Dietary Surveillance and Counseling Prescribed Diet Educ ation/Lifestyle Education Regarding Diet Related to Dietary Surveillance and Counseling Prescribed Activity and Exercise Education Related to Dietary Surveillance and Counseling Decrease caloric intake Related to Dietary surveillance counseling Dietary counseling Related to Di etary surveillance counseling Dietary counseling Related to Di etary surveillance counseling Decrease caloric intake Related to Dietary surveillance counseling Decrease caloric intake Related to Dietary surveillance counseling Dietary counseling Related to Di etary surveillance counseling Assessments Type Assessment Date assessment Acute upper respiratory infectio n, unspecified assessment Essential (primary) hypertension Mental Status Date Cognitive Assessment Orientation - [place] ed to time, place, person, situation.
--- OUTSIDE RECORDS SUMMARY | 2024-12-02 12:14 | XMS_ITS | Clinical Summary ---
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 Gender Identity Not on file Sexual Orientation Not on file Obstetrics History Last Filed Vital Signs Vital Sign Reading [...] 08/24/2024 8:41 AM CDT Plan of Treatment Health Maintenance Due Date Last Done Comments Breast Cancer Screening-Mammogram 1970 Cervical Cancer Screening 1970 Colon Cancer Screening-Colonoscopy 1970 Depression Screening 1970 Hepatitis C Screening 1970 Hepatitis B Screening 10/20/1987 Regular Well Visit/Exam 18-64 10/20/1987 Zoster Vaccine (1 of 2) 10/20/2019 Influenza Vaccine (Season Ended) 2025 DTaP/Tdap/Td Vaccine (2 - Td or Tdap) 09/23/2032 09/23/2022 Pneumococcal vaccine <65 Aged Out No longer eligible based on patient's age to complete this topic Insurance [facility] PL[facility] Advance Directives For more information, please contact: [phone] * Full Code (Latest Code Status on File) Date Activated Date Inactivated Comments 01/19/2023 7:48 AM 01/19/2023 1:41 PM Care Teams Oil Laboratory Analyst Relationship Specialty Start Date End Date Colette Moser MD [id number] [facility] [address] [place] [address] PCP - General Family Practice 01/19/23
[2024-12-02 12:50] LABS: Alanine Aminotransferase 22 U/L (6-35); Albumin Level 4.3 g/dL (3.5-5.1); Alkaline Phosphatase 45 U/L (38-126); Anion Gap 7 mmol/L (4-12); Aspartate Amino Transferase 27 U/L (14-36); Bilirubin,Total 1.2 mg/dL (0.2-1.3); Blood Urea Nitrogen 14 mg/dL (7-17); Calcium 9.3 mg/dL (8.4-10.2); Carbon Dioxide 27 mmol/L (22-30); Chloride 103 mmol/L (98-107); Cholesterol 234 mg/dL (0-200); Estimated Glomerular Filt Rate > 60; Glucose 96 mg/dL (65-110); HDL Direct 53 mg/dL; Potassium 3.9 mmol/L (3.4-5.0); Sodium 137 mmol/L (137-145); Total Protein 7.7 g/dL (6.3-8.2); Triglycerides 136 mg/dL (<150)
[2024-12-02 12:54] LABS: Hemoglobin A1C 5.7 % (<5.7)
[2024-12-02 12:55] LABS: Hematocrit 41.3 % (37.0-47.0); Hemoglobin 13.6 g/dL (12.0-15.0); Immature Granulocyte Percent A 0.3 % (0-0.5); Lymphocytes Absolute Auto 1.87 K/mm3 (0.9-3.2); Mean Corpuscular HGB Conc 32.9 g/dl (32-36); Mean Corpuscular Hemoglobin 30.7 pg (26-34); Mean Corpuscular Volume 93.2 fl (80-100); Nucleated Red Blood Cells Absolute Auto 0.000 K/mm3 (0.0-0.012); Nucleated Red Blood Cells Perc 0.0 % (0.0-0.2); Platelet Count Result 172 k/mm3 (150-375); Red Blood Count 4.43 M/mm3 (4.2-5.4); White Blood Count 6.3 K/mm3 (4.5-10.0)
[2024-12-02 13:08] LABS: Free T4 Free Thyroxine 0.66 ng/dL (0.78-2.19)
[2024-12-02 13:20] LABS: Thyroid Stimulating Hormone 3.070 uIU/mL (0.465-4.680)
== END 2024-12-02 12:10 | disposition home or self-care (01) ==
LOC: ANHLAB 12:11
PROVIDERS: PCP Family Medicine; Visit Provider Nurse Practitioner Family
DX: R73.03 Prediabetes (principal); I10 Essential (primary) hypertension; E55.9 Vitamin D deficiency, unspecified; E78.5 Hyperlipidemia, unspecified; E03.9 Hypothyroidism, unspecified
CPT/HCPCS: 36415; 80053; 80061; 82306; 83036; 84439; 84443; 85025

== ENCOUNTER 2024-12-04 15:27 | Outpatient (CLI) | payer OTHER, SELFPAY ==
--- NOTE | ~2024-12-04 | DEXA_ITS ---
Bone Density Report Name: GUIDO HDZ Age: 54 Sex: Female Ethnicity: White Date of : 1970 Indication: postmenopausal; screening for osteoporosis; Referring Provider: JANEE CABRERA Study: Bone densitometry was performed. Exam Date: December 04, 2024 Accession number: [id number] Bone Density: Region BMD T-score Z-score Classification AP Spine(L1-L4) 1.342 2.7 3.8 Normal Femoral Neck (Left) 1.079 2.1 3.1 Normal Total Hip (Left) 1.313 3.0 3.7 Normal Femoral Neck (Right) 1.090 2.2 3.2 Normal Total Hip (Right) 1.360 3.4 4.1 Normal Total Hip Mean 1.336 3.2 3.9 Normal World Health Organization criteria for BMD impression classify patients as: Normal (T-score at or above -1.0), Osteopenia (T-score between -1.0 and -2.5), or Osteoporosis (T-score at or below -2.5). 10-year Fracture Risk: FRAX not reported because: All T-scores for Spine Total, Hip Total, Femoral Neck at or above -1.0 Clinical Information Provided by Patient: Has used the following medications: Vitamin D Patient maximum height was 66 Drinks caffeinated beverages Onset of menses at age 11 Number of children 3 Impression: The patient has normal bone mass. Discussion: LOW RISK OF FRACTURE; BONE DENSITY IS WELL ABOVE THE MINIMUM DESIRABLE LEVEL AND ABOVE AVERAGE FOR AGE AND SEX AT ALL SKELETAL SITES TESTED. This person's bone density is above expected limits for age and sex. This is rarely clinically significant, but should be pursued if there are significant musculoskeletal complaints. The patient should follow a healthful lifestyle (good nutrition with adequate calcium and vitamin D, and appropriate weight-bearing exercise). Follow-Up: Consider repeating this study in 5 years or sooner if there is some new clinical indication. Reported by: SARA on 12/04/2024 3:51:00 PM. Reviewed, dictated and finalized at location A.
== END 2024-12-04 15:28 | disposition home or self-care (01) ==
LOC: MICIMG 15:28
PROVIDERS: PCP Family Medicine; Visit Provider Obstetrics & Gynecology Gynecology
DX: Z13.820 Encounter for screening for osteoporosis (principal); Z78.0 Asymptomatic menopausal state
CPT/HCPCS: 77080

== ENCOUNTER 2025-03-10 12:08 | Outpatient (CLI) | payer OTHER, SELFPAY ==
--- NOTE | ~2025-03-10 | XR_ITS ---
EXAMINATION: XR shoulder LT min 2V, 03/10/2025 12:12 CDT HISTORY: Pain in right shoulder x 2 weeks, no inj, no surg COMPARISON: No comparisons available. Findings: No acute fracture or malalignment. Minimal degenerative changes with calcific tendinopathy Soft tissues unremarkable. Impression: No acute fracture or malalignment. Reviewed, dictated and finalized at location P. Impression: No acute fracture or malalignment.
== END 2025-03-10 12:09 | disposition home or self-care (01) ==
LOC: GOSHIMG 12:08
PROVIDERS: PCP Family Medicine; Visit Provider Family Medicine
DX: M25.512 Pain in left shoulder (principal)
CPT/HCPCS: 73030